=== PATIENT | female | born 1960 | race Caucasian/White ===

== ENCOUNTER 2017-01-04 09:05 | Emergency (ER) | payer OTHER ==
[~2017-01-04] VITALS: Ht 162.6 cm; Wt 51.7 kg
[~2017-01-04 09:05] MED LIST: ESTRACE 1MG TABL1 MG PO; NICODERM C14 MG/24 H TD; PREDNISONE 20MG20 MG PO
[2017-01-04] MEDS ORDERED: ACYCLOVIR800 MG PO (09:41)
[2017-01-04] MEDS ORDERED: HYDROCODONE1 TABLET PO (09:42)
[2017-01-04] MEDS ORDERED: GABAPENTIN100 M1 PO (10:25)
--- NOTE | 2017-01-04 10:26 | Urgent Treatment Center Report ---
History of Present Issue Date/Time Seen by Provider 01/04/17 0950 Visit Reason Pt arrived:Walked Presenting Problem:PT STATES SHE WAS DX WITH SHINGLES ONE WEEK AGO. SHE NOW HAS SEVERE TEETH FACIAL PAIN ON THE LEFT SIDE. Location if Accident: Onset of symptoms date/time:/ or onset unknown for:MEDICAL HX UNKNOWN Have you (or family members/close friends) recently traveled outside the [place]? N If Yes, where/when: Have you had exposure to infectious disease within the past month? TB? Other? Specify: Patient states that she was recently diagnosed with shingles states that she is having severe dental pain and nerve pain states that pain stays to the left side and she has been given pain medication but she thinks she needs something that would help nerve pain ALLERGIES Coded Allergies: levofloxacin (From LEVAQUIN) (Intermediate, 01/04/17) Home Medications Active Scripts Prednisone (Prednisone 20MG) 20 MG PO BID #10 TAB Prov: 08/26/15 Reported Medications Estradiol (Estrace 1MG Tablet) 1 MG PO QHS Nicotine (Nicoderm Cq) 14 MG TD DAILY Acyclovir (Acyclovir 800MG) 800 MG PO TID HYDROCODONE 5MG/APAP 325MG (Hydrocodon-Acetaminophen 5-325) 1 TAB PO Q6HP PRN PAIN History Medical History General CAD? No Angina: No [place]: No Hypertension? No Hyperlipidemia? No CHF? No DVT? No PE? No COPD? No Asthma? No Anemia? No GERD? No Gastric ulcers? No GI Bleed? No Hernia? No Thyroid Problems? No Hypothyroidism? No CVA? No Seizures? No Diabetes? No Renal Insuffiency? No UTI? No Stones? No BPH? No GB Disease: No Nephritic Syndrome? No Asplenia? No Hepatitis? No Sickle Cell Disease? No Arthritis? No Migraines? No Cataracts? No Glaucoma? No MRSA? No HIV? No TB? No Anxiety? No Depression? No Cancer? No Immunization HX DT/Tetanus Unknown Surgical Hx Previous Surgery?Y HYSTERECTOMY Social History Smoking Hx Smoker: Current Every Day Smoker Tobacco: Yes Type Cigarettes Packs/day < 1 Pack Alcohol Alcohol: No Review of Systems All Other Systems Reviewed and Negative Skin other (shingles on right side) Physical Exam Vital Signs Vital Signs Date Time Temp Pulse Resp B/P Pulse O2 O2 Flow FiO2 Ox Delivery Rate 01/04 938 98.2 78 18 143/86 99 General Appearance Patient crying, shingles noted on her right side and appeared to be improving and dry around the edges Respiratory Status Yes: trachea midline, chest symmetrical, non tender chest. No: respiratory distress. 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 No Results/Orders Current Medication Orders Sig/Melissa Start time Last Medication Dose Route Stop Time Status Admin Ketorolac 60 MG ONCE ONE 01/04 1030 AC Tromethamine IM 01/04 1031 Ketorolac 0 .STK-MED ONE 01/04 1023 DC Tromethamine .ROUTE Departure Departure Time of Disposition 1022 Disposition DC Home or Self Care(routine) Clinical Impression Primary Impression: Shingles Qualifiers: Herpes zoster complications: with other complications Qualified Code: B02.8 - Zoster with other complications Condition STABLE Referrals Jonathan MIRELES,Vikash (Family) Patient Instructions DI for Shingles Additional Instructions Take medication as prescribed Follow up with family doctor Return if needed Discharge Counseling Counseled pt/family regarding diagnosis, medications/RX, home care, follow up needs Prescriptions Current Visit Scripts Gabapentin (Gabapentin 100MG) 100 MG PO BID #30 TAB at 1025
[2017-01-04 10:29] VITALS: BP 143/86
== END 2017-01-04 10:34 | disposition home or self-care (01) ==
LOC: UTC 09:05
DX: B02.8 Zoster with other complications (principal); Z72.0 Tobacco use

== ENCOUNTER 2017-07-23 14:03 | Emergency (ER) | payer OTHER ==
[~2017-07-23] VITALS: Ht 162.6 cm; Wt 49.9 kg
[~2017-07-23 14:03] MED LIST changes: +ACYCLOVIR800 MG PO; +GABAPENTIN100 M1 PO; +HYDROCODONE1 TABLET PO
--- NOTE | 2017-07-23 14:42 | Urgent Treatment Center Report ---
History of Present Issue Date/Time Seen by Provider 07/23/17 4445 Visit Reason Pt arrived:Walked Presenting Problem:PT C/O BUTTS, NECK PAIN, AND AN AREA ON HER BACK THAT SHE BELIEVES TO BE AN INSECT BITE. PT ALSO ADVISES THAT SHE HAS BEEN EXPOSED TO STREP Location if Accident: Onset of symptoms date/time:/ or onset unknown for:MEDICAL HX UNKNOWN Have you (or family members/close friends) recently traveled outside the [place]? N If Yes, where/when: Have you had exposure to infectious disease within the past month? TB? Other? Specify: c/o severe headache and neck stiffness. First noticed late but has progressively gotten worse. Severe last night and this morning. 06/09. "sharp and intense". Pt in tears. "I have never had anything like this before". no improvement w/ sinus medication or NSAIDs although denies sinus symptoms. "Just thought it might help". BUTTS associated w/ sy eye pain, red eyes, neck stiffness, general malaise. "I just could hardly get out of bed this morning due to it". Denies hx of HAs. No hx migraines. Left [place] Tuesday. Rode home w/ a friend later dx w/ strep. Noticed insect bite to back early . "not sure if related or not". No known sick contacts. Photophobia now that in clinic only. Denies change vision, confusion, dizziness, fever. "I drove here". Source patient Exam Limitations no limitations ALLERGIES Coded Allergies: levofloxacin (From LEVAQUIN) (Intermediate, 01/04/17) Home Medications Active Scripts Gabapentin (Gabapentin 100MG) 100 MG PO BID #30 TAB Prov: 01/04/17 Prednisone (Prednisone 20MG) 20 MG PO BID #10 TAB Prov: 08/26/15 Reported Medications Estradiol (Estrace 1MG Tablet) 1 MG PO QHS Nicotine (Nicoderm Cq) 14 MG TD DAILY Acyclovir (Acyclovir 800MG) 800 MG PO TID HYDROCODONE 5MG/APAP 325MG (Hydrocodon-Acetaminophen 5-325) 1 TAB PO Q6HP PRN PAIN History Medical History General CAD? No Angina: No [place]: No Hypertension? No Hyperlipidemia? No CHF? No DVT? No PE? No COPD? No Asthma? No Anemia? No GERD? No Gastric ulcers? No GI Bleed? No Hernia? No Thyroid Problems? No Hypothyroidism? No CVA? No Seizures? No Diabetes? No Renal Insuffiency? No UTI? No Stones? No BPH? No GB Disease: No Nephritic Syndrome? No Asplenia? No Hepatitis? No Sickle Cell Disease? No Arthritis? No Migraines? No Cataracts? No Glaucoma? No MRSA? No HIV? No TB? No Anxiety? No Depression? No Cancer? No Immunization HX DT/Tetanus Unknown Surgical Hx Previous Surgery?Y HYSTERECTOMY Social History Smoking Hx Smoker: Current Every Day Smoker Tobacco: Yes Type Cigarettes Packs/day < 1 Pack Alcohol Alcohol: No Review of Systems All Other Systems Reviewed and Negative Constitutional see HPI Eyes see HPI ENT denies: ear pain, nose discharge, nose congestion, throat pain, throat swelling, other (change hearing). Respiratory cough ("mild intermittent"), denies shortness of breath Cardiovascular denies chest pain, denies edema, denies palpitations Gastrointestinal denies nausea, denies vomiting Genitourinary denies: no symptoms reported. Musculoskeletal see HPI, denies back pain Skin see HPI Psychiatric/Neurological see HPI, denies numbness, denies tingling Physical Exam Vital Signs Vital Signs Date Time Temp Pulse Resp B/P Pulse O2 O2 Flow FiO2 Ox Delivery Rate 07/23 142 98.7 94 14 136/91 99 General Appearance moderate distress (tearful) Eye Exam - bilateral eye PERRL, bilateral eye EOMI Comment tearful, bilateral sclera injected Ear, Nose, Throat normal ENT inspection Neck normal inspection, limited range of motion Respiratory Status No: respiratory distress, productive cough, non productive cough. Lung Sounds anterior: lungs clear. posterior: lungs clear. bilateral: lungs clear. Cardiovascular regular rate/rhythm, no peripheral edema, no murmur Neurologic alert, oriented x 3 Mental status normal mood/affect Skin lesions (lower thoracic spine) Medical Decision Making LABS/Meds/Orders Pt receiving controlled substance in ED? No Results/Orders Laboratory Tests 07/23/17 1420: Group A Strep Screen NOT DETECTED Orders Procedure Date/time Status [facility] STREP SCREEN 07/23 142 Complete Progress [facility] Progress Notes Date 07/23/17 Time 1450 Comment Discussed negative strep as well as concerning symptoms/exam with pt. Pt agreeable to transfer to ER for further evaluation. Report called to Do in ER , room 8 available Departure Departure Time of Disposition 1450 Disposition Still a Patient Clinical Impression Primary Impression: Headache Qualifiers: Headache type: primary stabbing headache Qualified Code: G44.85 - Primary stabbing headache Secondary Impressions: Neck stiffness Condition STABLE at 6746
--- NOTE | 2017-07-23 14:42 | Urgent Treatment Center Report ---
History of Present Issue Date/Time Seen by Provider 07/23/17 8755 Visit Reason Pt arrived:Walked Presenting Problem:PT C/O BUTTS, NECK PAIN, AND AN AREA ON HER BACK THAT SHE BELIEVES TO BE AN INSECT BITE. PT ALSO ADVISES THAT SHE HAS BEEN EXPOSED TO STREP Location if Accident: Onset of symptoms date/time:/ or onset unknown for:MEDICAL HX UNKNOWN Have you (or family members/close friends) recently traveled outside the [place]? N If Yes, where/when: Have you had exposure to infectious disease within the past month? TB? Other? Specify: c/o severe headache and neck stiffness. First noticed late but has progressively gotten worse. Severe last night and this morning. 06/09. "sharp and intense". Pt in tears. "I have never had anything like this before". no improvement w/ sinus medication or NSAIDs although denies sinus symptoms. "Just thought it might help". BUTTS associated w/ sy eye pain, red eyes, neck stiffness, general malaise. "I just could hardly get out of bed this morning due to it". Denies hx of HAs. No hx migraines. Left [place] Tuesday. Rode home w/ a friend later dx w/ strep. Noticed insect bite to back early . "not sure if related or not". No known sick contacts. Photophobia now that in clinic only. Denies change vision, confusion, dizziness, fever. "I drove here". Source patient Exam Limitations no limitations ALLERGIES Coded Allergies: levofloxacin (From LEVAQUIN) (Intermediate, 01/04/17) Home Medications Active Scripts Gabapentin (Gabapentin 100MG) 100 MG PO BID #30 TAB Prov: 01/04/17 Prednisone (Prednisone 20MG) 20 MG PO BID #10 TAB Prov: 08/26/15 Reported Medications Estradiol (Estrace 1MG Tablet) 1 MG PO QHS Nicotine (Nicoderm Cq) 14 MG TD DAILY Acyclovir (Acyclovir 800MG) 800 MG PO TID HYDROCODONE 5MG/APAP 325MG (Hydrocodon-Acetaminophen 5-325) 1 TAB PO Q6HP PRN PAIN History Medical History General CAD? No Angina: No [place]: No Hypertension? No Hyperlipidemia? No CHF? No DVT? No PE? No COPD? No Asthma? No Anemia? No GERD? No Gastric ulcers? No GI Bleed? No Hernia? No Thyroid Problems? No Hypothyroidism? No CVA? No Seizures? No Diabetes? No Renal Insuffiency? No UTI? No Stones? No BPH? No GB Disease: No Nephritic Syndrome? No Asplenia? No Hepatitis? No Sickle Cell Disease? No Arthritis? No Migraines? No Cataracts? No Glaucoma? No MRSA? No HIV? No TB? No Anxiety? No Depression? No Cancer? No Immunization HX DT/Tetanus Unknown Surgical Hx Previous Surgery?Y HYSTERECTOMY Social History Smoking Hx Smoker: Current Every Day Smoker Tobacco: Yes Type Cigarettes Packs/day < 1 Pack Alcohol Alcohol: No Review of Systems All Other Systems Reviewed and Negative Constitutional see HPI Eyes see HPI ENT denies: ear pain, nose discharge, nose congestion, throat pain, throat swelling, other (change hearing). Respiratory cough ("mild intermittent"), denies shortness of breath Cardiovascular denies chest pain, denies edema, denies palpitations Gastrointestinal denies nausea, denies vomiting Genitourinary denies: no symptoms reported. Musculoskeletal see HPI, denies back pain Skin see HPI Psychiatric/Neurological see HPI, denies numbness, denies tingling Physical Exam Vital Signs Vital Signs Date Time Temp Pulse Resp B/P Pulse O2 O2 Flow FiO2 Ox Delivery Rate 07/23 142 98.7 94 14 136/91 99 General Appearance moderate distress (tearful) Eye Exam - bilateral eye PERRL, bilateral eye EOMI Comment tearful, bilateral sclera injected Ear, Nose, Throat normal ENT inspection Neck normal inspection, limited range of motion Respiratory Status No: respiratory distress, productive cough, non productive cough. Lung Sounds anterior: lungs clear. posterior: lungs clear. bilateral: lungs clear. Cardiovascular regular rate/rhythm, no peripheral edema, no murmur Neurologic alert, oriented x 3 Mental status normal mood/affect Skin lesions (lower thoracic spine) Medical Decision Making LABS/Meds/Orders Pt receiving controlled substance in ED? No Results/Orders Laboratory Tests 07/23/17 1420: Group A Strep Screen NOT DETECTED Orders Procedure Date/time Status [facility] STREP SCREEN 07/23 142 Complete Progress [facility] Progress Notes Date 07/23/17 Time 1450 Comment Discussed negative strep as well as concerning symptoms/exam with pt. Pt agreeable to transfer to ER for further evaluation. Report called to Do in ER , room 8 available Departure Departure Time of Disposition 1450 Disposition Still a Patient Clinical Impression Primary Impression: Headache Qualifiers: Headache type: primary stabbing headache Qualified Code: G44.85 - Primary stabbing headache Secondary Impressions: Neck stiffness Condition STABLE at 8645
--- NOTE | 2017-07-23 15:43 | Emergency Room Report ---
History of Present Illness Time Seen by MD Medrano Presenting Problem in Triage Pt arrived:Walked Presenting Problem:PT C/O BUTTS, NECK PAIN, AND AN AREA ON HER BACK THAT SHE BELIEVES TO BE AN INSECT BITE. PT ALSO ADVISES THAT SHE HAS BEEN EXPOSED TO STREP Onset of symptoms date/time:/ or onset unknown for:MEDICAL HX UNKNOWN Treatment Prior to Arrival: PT SENT FROM [facility] Provided by:NURSE Sepsis Risk Assessment: Temp: 98.7 B/P: 136/91 MAP: 106 Pulse: 94 Resp: 14 Recent fever? N Clinical Suspician of Infection? N Mental Status: 1 - Regular (Normal Baseline) Sepsis Risk:Low Sepsis Risk Have you (or family members/close friends) recently traveled outside the [place]? N If Yes, where/when: Have you had exposure to infectious disease within the past month? N TB? Other? Specify: 56 years old white female who recently returned from [place]. She developed a spot on her midthoracic region looks like infected follicle followed by facial headache, sinus pain, sore throat, earaches and nasal congestion. She complains of paraspinal neck soreness versus flexion without rigidity or stiffness. She has photophobia without nausea. She has no history of headache. Source patient, RN notes reviewed Exam Limitations no limitations ALLERGIES Coded Allergies: levofloxacin (From LEVAQUIN) (Intermediate, 01/04/17) Home Medications Active Scripts Gabapentin (Gabapentin 100MG) 100 MG PO BID #30 TAB Prov: 01/04/17 Prednisone (Prednisone 20MG) 20 MG PO BID #10 TAB Prov: 08/26/15 Reported Medications Estradiol (Estrace 1MG Tablet) 1 MG PO QHS Nicotine (Nicoderm Cq) 14 MG TD DAILY Acyclovir (Acyclovir 800MG) 800 MG PO TID HYDROCODONE 5MG/APAP 325MG (Hydrocodon-Acetaminophen 5-325) 1 TAB PO Q6HP PRN PAIN History Medical History General CAD? No Angina: No [place]: No Hypertension? No Hyperlipidemia? No CHF? No DVT? No PE? No COPD? No Asthma? No Anemia? No GERD? No Gastric ulcers? No GI Bleed? No Hernia? No Thyroid Problems? No Hypothyroidism? No CVA? No Seizures? No Diabetes? No Renal Insuffiency? No End Stage Renal Disease? No UTI? No Stones? No BPH? No GB Disease: No Nephritic Syndrome? No Asplenia? No Hepatitis? No Sickle Cell Disease? No Arthritis? No Migraines? No Cataracts? No Glaucoma? No MRSA? No HIV? No TB? No Anxiety? No Depression? No Cancer? No More? 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 Respiratory no symptoms reported Cardiovascular no symptoms reported Gastrointestinal no symptoms reported Genitourinary no symptoms reported. Musculoskeletal no symptoms reported Skin see HPI Psychiatric/Neurological no symptoms reported Physical Exam Vital Signs Vital Signs Date Time Temp Pulse Resp B/P Pulse O2 O2 Flow FiO2 Ox Delivery Rate 07/23 1822 92 18 140/85 99 07/23 1656 98.7 94 18 136 99 07/23 1608 18 07/23 1505 98.7 94 14 99 07/23 1426 98.7 94 14 99 - WBC >12,000 or <4,000 or 10% bands? 2 or more SIRS Criteria Met? B/P: MAP:106 Creatinine >2.0? UA output<0.5ml/kg/hr for 2 hrs? Platelet count >100,000? Lactate >2.0mmol/1? INR >1.2 or PTT > than 60 sec? Evidence of Organ Dysfunction? Provider documented clinical suspician of infection? N Sepsis Criteria Count: 1 Sepsis Risk: Low Sepsis Risk General Appearance normal appearance, WD/WN Eye Exam - bilateral eye normal exam, bilateral eye PERRL, bilateral eye EOMI Ear, Nose, Throat hearing grossly normal, normal ENT inspection Neck normal inspection, non-tender, supple, full range of motion Respiratory Status Yes: trachea midline, chest symmetrical, non tender chest. No: respiratory distress. Lung Sounds bilateral: normal breath sounds, lungs clear. 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 Negative Kernig's and Brudzinski. Reflexes Reflexes normal Yes Skin normal color, warm/dry, 1 cm area of raised skin surrounding a hair follicle suspicious for folliculitis Medical Decision Making LABS/Meds/Orders Pt receiving controlled substance in ED? No Results/Orders Laboratory Tests 07/23/17 1555: Sodium 140, Potassium 4.1, Chloride 102, Carbon Dioxide 28, BUN 11, Creatinine 0.6, Estimated Creat Clear 84, Estimated GFR (MDRD) 104, Glucose 89, Calcium 8.4 L, Total Bilirubin 0.3, AST 25, ALT 30, Alkaline Phosphatase 124 H, Total Protein 6.9, Albumin 3.7, Globulin 3.2, Albumin/Globulin Ratio 1.2, PT 10.5, INR 0.97, APTT 28.8, WBC 10.0, RBC 4.73, Hgb 14.5, Hct 44.3, MCV 93.6, RDW 12.9, Plt Count 363, MPV 6.3 L, Gran % 71.1, Gran # 7.1, Lymphocytes % 20.8, Monocytes % 6.1, Eosinophils % 1.5, Basophils % 0.4, Lymphocytes # 2.1, Monocytes # 0.6, Eosinophils # 0.2, Basophils # 0.0, PUBS MCHC 32.8, MCH 30.7, Lyme Disease IgG/ IgM Pending, Lyme IgM 41 kDa Band Pending 07/23/17 1420: Group A Strep Screen NOT DETECTED Current Medication Orders Sig/Melissa Start time Last Medication Dose Route Stop Time Status Admin Ceftriaxone Sodium 0 .STK-MED ONE 07/23 160 DC IV Ketorolac 0 .STK-MED ONE 07/23 160 DC Tromethamine .ROUTE Sodium Chloride 50 ML .STK-MED ONE 07/23 160 DC IV Sodium Chloride 1,000 ML .STK-MED ONE 07/23 1602 DC IV Ceftriaxone Sodium 1 GM ONCE ONE 07/23 1545 SD 07/23 Sodium Chloride 50 ML IV 07/23 1614 1608 Ketorolac 30 MG ONCE ONE 07/23 1545 DC 07/23 Tromethamine IV 07/23 1546 1608 Sodium Chloride 1,000 ML .Q1H1M 07/23 1545 DC 07/23 IV 07/23 1645 1609 Sodium Chloride 10 ML PRN PRN 07/23 1545 AC IV 07/24 1536 Orders Procedure Date/time Status DIET-NOTHING BY MOUTH 07/[address] HEAD REQ 07/[address] SCAN REQ 07/23 153 Active CULTURE, BLOOD 07/23 1537 Active PARTIAL THROMBOPLASTIN TIME 07/23 1537 Complete PROTHROMBIN TIME 07/23 1537 Complete LYME DISEASE AB 07/23 1537 Active LACTIC ACID 07/23 1537 Active CBC WITH AUTO DIFF 07/23 1537 Complete CHEM 12 PROFILE 07/23 1537 Complete [facility] STREP SCREEN 07/23 1420 Complete Departure Departure Time of Disposition 1841 Disposition DC/XFER from [facility] Clinical Impression Primary Impression: Basal ganglia hemorrhage Condition STABLE Referrals Neto MIRELES,A.C. (Family) Additional Instructions after obtaining abnormal x ray i called Dr Parra from neurosurgery who recommended no LP and call stroke service for repeat scan in AM. I explained to the patient her options and she agreed for tranfere. She was transfered in a stable conditio. dr. Mcghee ED Critical Care Critical Care No at 1843
--- NOTE | 2017-07-23 15:43 | Emergency Room Report ---
History of Present Illness Time Seen by MD Medrano Presenting Problem in Triage Pt arrived:Walked Presenting Problem:PT C/O BUTTS, NECK PAIN, AND AN AREA ON HER BACK THAT SHE BELIEVES TO BE AN INSECT BITE. PT ALSO ADVISES THAT SHE HAS BEEN EXPOSED TO STREP Onset of symptoms date/time:/ or onset unknown for:MEDICAL HX UNKNOWN Treatment Prior to Arrival: PT SENT FROM [facility] Provided by:NURSE Sepsis Risk Assessment: Temp: 98.7 B/P: 136/91 MAP: 106 Pulse: 94 Resp: 14 Recent fever? N Clinical Suspician of Infection? N Mental Status: 1 - Regular (Normal Baseline) Sepsis Risk:Low Sepsis Risk Have you (or family members/close friends) recently traveled outside the [place]? N If Yes, where/when: Have you had exposure to infectious disease within the past month? N TB? Other? Specify: 56 years old white female who recently returned from [place]. She developed a spot on her midthoracic region looks like infected follicle followed by facial headache, sinus pain, sore throat, earaches and nasal congestion. She complains of paraspinal neck soreness versus flexion without rigidity or stiffness. She has photophobia without nausea. She has no history of headache. Source patient, RN notes reviewed Exam Limitations no limitations ALLERGIES Coded Allergies: levofloxacin (From LEVAQUIN) (Intermediate, 01/04/17) Home Medications Active Scripts Gabapentin (Gabapentin 100MG) 100 MG PO BID #30 TAB Prov: 01/04/17 Prednisone (Prednisone 20MG) 20 MG PO BID #10 TAB Prov: 08/26/15 Reported Medications Estradiol (Estrace 1MG Tablet) 1 MG PO QHS Nicotine (Nicoderm Cq) 14 MG TD DAILY Acyclovir (Acyclovir 800MG) 800 MG PO TID HYDROCODONE 5MG/APAP 325MG (Hydrocodon-Acetaminophen 5-325) 1 TAB PO Q6HP PRN PAIN History Medical History General CAD? No Angina: No [place]: No Hypertension? No Hyperlipidemia? No CHF? No DVT? No PE? No COPD? No Asthma? No Anemia? No GERD? No Gastric ulcers? No GI Bleed? No Hernia? No Thyroid Problems? No Hypothyroidism? No CVA? No Seizures? No Diabetes? No Renal Insuffiency? No End Stage Renal Disease? No UTI? No Stones? No BPH? No GB Disease: No Nephritic Syndrome? No Asplenia? No Hepatitis? No Sickle Cell Disease? No Arthritis? No Migraines? No Cataracts? No Glaucoma? No MRSA? No HIV? No TB? No Anxiety? No Depression? No Cancer? No More? 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 Respiratory no symptoms reported Cardiovascular no symptoms reported Gastrointestinal no symptoms reported Genitourinary no symptoms reported. Musculoskeletal no symptoms reported Skin see HPI Psychiatric/Neurological no symptoms reported Physical Exam Vital Signs Vital Signs Date Time Temp Pulse Resp B/P Pulse O2 O2 Flow FiO2 Ox Delivery Rate 07/23 1822 92 18 140/85 99 07/23 1656 98.7 94 18 136 99 07/23 1608 18 07/23 1505 98.7 94 14 99 07/23 1426 98.7 94 14 99 - WBC >12,000 or <4,000 or 10% bands? 2 or more SIRS Criteria Met? B/P: MAP:106 Creatinine >2.0? UA output<0.5ml/kg/hr for 2 hrs? Platelet count >100,000? Lactate >2.0mmol/1? INR >1.2 or PTT > than 60 sec? Evidence of Organ Dysfunction? Provider documented clinical suspician of infection? N Sepsis Criteria Count: 1 Sepsis Risk: Low Sepsis Risk General Appearance normal appearance, WD/WN Eye Exam - bilateral eye normal exam, bilateral eye PERRL, bilateral eye EOMI Ear, Nose, Throat hearing grossly normal, normal ENT inspection Neck normal inspection, non-tender, supple, full range of motion Respiratory Status Yes: trachea midline, chest symmetrical, non tender chest. No: respiratory distress. Lung Sounds bilateral: normal breath sounds, lungs clear. Cardiovascular normal exam, regular rate/rhythm, no peripheral edema, no gallop, no JVD, no murmur, no rub, normal peripheral pulses Peripheral Pulses Pulses normal Yes Gastrointestinal normal bowel sounds, normal exam, non tender, soft, no organomegaly Back normal inspection, no CVA tenderness, no vertebral tenderness Extremities non-tender, normal range of motion, normal inspection Neurologic alert, marketing operations consultant II-XII nml as tested, normal exam, no motor/sensory deficits, oriented x 3, patient had no meningeal signs, neck flexion and bilateral hip and knee flexions without difficulty. Negative Kernig's and Brudzinski. Reflexes Reflexes normal Yes Skin normal color, warm/dry, 1 cm area of raised skin surrounding a hair follicle suspicious for folliculitis Medical Decision Making LABS/Meds/Orders Pt receiving controlled substance in ED? No Results/Orders Laboratory Tests 07/23/17 1555: Sodium 140, Potassium 4.1, Chloride 102, Carbon Dioxide 28, BUN 11, Creatinine 0.6, Estimated Creat Clear 84, Estimated GFR (MDRD) 104, Glucose 89, Calcium 8.4 L, Total Bilirubin 0.3, AST 25, ALT 30, Alkaline Phosphatase 124 H, Total Protein 6.9, Albumin 3.7, Globulin 3.2, Albumin/Globulin Ratio 1.2, PT 10.5, INR 0.97, APTT 28.8, WBC 10.0, RBC 4.73, Hgb 14.5, Hct 44.3, MCV 93.6, RDW 12.9, Plt Count 363, MPV 6.3 L, Gran % 71.1, Gran # 7.1, Lymphocytes % 20.8, Monocytes % 6.1, Eosinophils % 1.5, Basophils % 0.4, Lymphocytes # 2.1, Monocytes # 0.6, Eosinophils # 0.2, Basophils # 0.0, PUBS MCHC 32.8, MCH 30.7, Lyme Disease IgG/ IgM Pending, Lyme IgM 41 kDa Band Pending 07/23/17 1420: Group A Strep Screen NOT DETECTED Current Medication Orders Sig/Melissa Start time Last Medication Dose Route Stop Time Status Admin Ceftriaxone Sodium 0 .STK-MED ONE 07/23 160 DC IV Ketorolac 0 .STK-MED ONE 07/23 160 DC Tromethamine .ROUTE Sodium Chloride 50 ML .STK-MED ONE 07/23 160 DC IV Sodium Chloride 1,000 ML .STK-MED ONE 07/23 1602 DC IV Ceftriaxone Sodium 1 GM ONCE ONE 07/23 1545 WV 07/23 Sodium Chloride 50 ML IV 07/23 1614 1608 Ketorolac 30 MG ONCE ONE 07/23 1545 DC 07/23 Tromethamine IV 07/23 1546 1608 Sodium Chloride 1,000 ML .Q1H1M 07/23 1545 DC 07/23 IV 07/23 1645 1609 Sodium Chloride 10 ML PRN PRN 07/23 1545 AC IV 07/24 1536 Orders Procedure Date/time Status DIET-NOTHING BY MOUTH 07/[address] HEAD REQ 07/[address] SCAN REQ 07/23 153 Active CULTURE, BLOOD 07/23 1537 Active PARTIAL THROMBOPLASTIN TIME 07/23 1537 Complete PROTHROMBIN TIME 07/23 1537 Complete LYME DISEASE AB 07/23 1537 Active LACTIC ACID 07/23 1537 Active CBC WITH AUTO DIFF 07/23 1537 Complete CHEM 12 PROFILE 07/23 1537 Complete UTC STREP SCREEN 07/23 1420 Complete Departure Departure Time of Disposition 1841 Disposition DC/XFER from ER to [facility] Clinical Impression Primary Impression: Basal ganglia hemorrhage Condition STABLE Referrals Neto MIRELES,A.C. (Family) Additional Instructions after obtaining abnormal x ray i called Dr Parra from neurosurgery who recommended no LP and call stroke service for repeat scan in AM. I explained to the patient her options and she agreed for tranfere. She was transfered in a stable conditio. dr. Mcghee ED Critical Care Critical Care No at [id number]
[2017-07-23 16:05] LABS: HEMOGLOBIN 14.5 g/dL (12.2-16.2); LYMPH # 2.1 K/mm3 (0.7-4.5); LYMPH % 20.8 % (10-50.0)
--- NOTE | 2017-07-23 17:34 | RADIOLOGY REPORT PS360 ---
CT HEAD W/O CONTRAST HISTORY: Severe headache NEW ONSET HEADACHE ORDERING PHYSICIAN: Sean Mcghee MD PATIENT AGE: 56 years COMPARISON: None TECHNIQUE: Axial images obtained without contrast. Brain and bone windows reviewed. FINDINGS: No midline shift or mass effect is evident. No definite intracranial hemorrhage. There is a small hyperdense focus within the medial aspect of the left basal ganglion measuring approximately 3 mm and could be due to an early area of ossification. A small hemorrhage is not completely excluded therefore, recommend follow-up exam in 24 hours. Mild nonspecific hypoattenuation is present in the periventricular region consistent with microangiopathic changes. No other significant anomalies are evident. No mastoid effusion or sinus air-fluid level. No acute calvarial abnormality. IMPRESSION: 1. No definite acute intracranial findings 2. 3 mm hyperdense focus left basal ganglia which may only be due to an area of mineralization. Suggest 24 hour follow-up for confirmation as a very small hemorrhage could have this appearance.
--- NOTE | 2017-07-23 17:36 | RADIOLOGY REPORT PS360 ---
CT SINUS (MAX-FACIAL W/O CONT) CLINICAL INDICATION: Headache, facial pain NEW ONSET HEADACHE ORDERING PHYSICIAN: Sean Mcghee MD PATIENT AGE: 56 years COMPARISON: None TECHNIQUE:Axial, sagittal, and coronal images are generated and reviewed without contrast FINDINGS: No sinus air-fluid level. There is minimal mucosal thickening of the ethmoid sinuses. There is moderate leftward nasal septal deviation with a small right becki bullosa. No mastoid effusion. Scattered small lymph nodes are present in the neck. Unremarkable orbits. IMPRESSION: 1. No acute finding. 2. Minimal ethmoid sinus mucosal thickening without air-fluid levels. 3. Leftward nasal septal deviation
[2017-07-23 19:19] VITALS: BP 140/85
== END 2017-07-23 19:18 | disposition short-term general hospital (02) ==
LOC: UTC 14:03 → ER 14:06
PROVIDERS: Emergency Medicine
DX: I61.0 Nontraumatic intracerebral hemorrhage in hemisphere, subcortical (principal); Z72.0 Tobacco use; Z88.1 Allergy status to other antibiotic agents; Z79.899 Other long term (current) drug therapy; R21 Rash and other nonspecific skin eruption